=== PATIENT | male | born 1995 | race Caucasian/White ===

== ENCOUNTER 2020-10-12 11:32 | Emergency (ER) | payer OTHER ==
[2020-10-12 11:53] VITALS: BP 136/89
[2020-10-12] MEDS ORDERED: DIPH/PERTUSS(ACELL)/TETANUS VAC/PF 0.5 ML SYR (>=10YO) IM ONE (11:55)
--- NOTE | 2020-10-12 11:57 | ER Document Report ---
ED Medical Screen (RME) - General Chief Complaint: Laceration Stated Complaint: LACERATION/RIGHT HAND,PALM Time Seen by Provider: 10/12/20 11:53 Mode of Arrival: Ambulatory Information source: Patient Notes: 24-year-old male presented to ED for laceration to his left hand. He states he was driving rebar into the ground when he sliced his left hand across the thumb open. He states he does not have any idea when his last tetanus was. He states only medical or surgical history is a fractured toe. He is alert oriented respirations regular unlabored. He has no active bleeding at this time. We will get x-rays and order the tetanus immunization at this time. I have greeted and performed a rapid initial assessment of this patient. A comprehensive ED assessment and evaluation of the patient, analysis of test results and completion of medical decision making process will be conducted by an additional ED providers. Physical Exam - Vital signs Vitals: Temp Pulse Resp BP Pulse Ox 98.4 F 86 16 136/89 H 99 10/11/20 23:51 10/11/20 23:51 10/11/20 23:51 10/11/20 23:51 10/11/20 23:51 Course - Vital Signs Vital signs: Temp Pulse Resp BP Pulse Ox 98.4 F 86 16 136/89 H 99 10/11/20 23:51 10/11/20 23:51 10/11/20 23:51 10/11/20 23:51 10/11/20 23:51
--- NOTE | 2020-10-12 12:43 | RADIOLOGY REPORT (SQ) ---
EXAM DESCRIPTION: HAND RIGHT 3 VIEWS IMAGES COMPLETED DATE/TIME: 10/12/2020 12:35 pm REASON FOR STUDY: Laceration with rebar COMPARISON: None. EXAM PARAMETERS: NUMBER OF VIEWS: Three views. TECHNIQUE: AP, lateral and oblique radiographic images acquired of the right hand. LIMITATIONS: None. FINDINGS: MINERALIZATION: Normal. BONES: No acute fracture or dislocation. JOINTS: The normal carpal alignment is preserved. SOFT TISSUES: No soft tissue swelling or radiopaque foreign body. OTHER: No other findings. IMPRESSION: No acute osseous abnormality of the right hand. TECHNICAL DOCUMENTATION: JOB ID: [id number] [employer]- All Rights Reserved Reading location - IP/workstation name: [email or web address]
[2020-10-12] MEDS ORDERED: LIDOCAINE 2% INJ (20 MG/ML) 20 ML MDV INJ ONE (14:59)
--- NOTE | 2020-10-12 15:06 | ER Document Report ---
ED General - General Chief Complaint: Laceration Stated Complaint: LACERATION/RIGHT HAND,PALM Time Seen by Provider: 10/12/20 11:53 Primary Care Provider: RAYMUNDO ROE DO [ACTIVE STAFF] - Follow up as needed Mode of Arrival: Ambulatory Information source: Patient Notes: This 24-year-old man presents to the emergency department with a history of injury to his right hand today while at work. States that he was driving rebar into the ground when his hand slipped and he sustained a laceration across the thenar portion of the palm. His tetanus is out of date, he has no known allergies to medication. There is a grossly contaminated wound with oil and dirt. He is able to move his thumb flex and extend. Past Medical History - General Information source: Patient - Social History Smoking Status: Current Some Day Smoker Family History: Reviewed & Not Pertinent Review of Systems - Review of Systems Notes: Constitutional: Negative for fever. HENT: Negative for sore throat. Eyes: Negative for visual changes. Cardiovascular: Negative for chest pain. Respiratory: Negative for shortness of breath. Gastrointestinal: Negative for abdominal pain, vomiting or diarrhea. Genitourinary: Negative for dysuria. Musculoskeletal: See HPI Skin: Negative for rash. Neurological: Negative for headaches, weakness or numbness. 10 point ROS negative except as marked above and in HPI. Physical Exam - Vital signs Vitals: Temp Pulse Resp BP Pulse Ox 98.4 F 86 16 136/89 H 99 10/11/20 23:51 10/11/20 23:51 10/11/20 23:51 10/11/20 23:51 10/11/20 23:51 - Notes Notes: PHYSICAL EXAMINATION: Physical Exam: General: Well-nourished well-developed in no acute distress HEENT: NC/AT, pupils equal round and reactive to light, MM moist,nares clear, oropharynx clear, airway patent Neck: supple, no adenopathy, no masses. Good range of motion Lungs: clear, no wheezing, no rales no rhonchi CVS: Regular rate and rhythm no murmur gallop or rub Abdomen: Soft, active, nontender, no masses, no hepatosplenomegaly Ext: No edema, clubbing or cyanosis. Neuro: Alert and responsive, moving all 4 extremities on command, cranial nerves intact, no focal findings Skin: approximately, 4 cm deep laceration across the thenar portion of the thumb, muscle exposed. Right hand, able to flex the tip and extend the tip of the thumb. PSYCH: Normal mood, normal affect. Course - Re-evaluation Re-evalutation: 10/13/20 11:43 This is a complicated hand laceration with laceration to the dominant hand across the lower thenar muscle of the thumb. Patient denies numbness or loss of function in the thumb and he is able to flex and extend the thumb tip and finger the apposition of the thumb to the hand is limited likely from pain. Neurologically no loss of sensation. Copious irrigation of the wound cleaning out the hand which was dirty with mold and dirt as well as the edges of the wound. Wound was irrigated with normal saline. Closure of the wound was a layered closure with muscle and deep subcutaneous tissues being closed with a 4- 0 Vicryl suture the external wound was closed using 4-0 Prolene. Patient tolerated the procedure well and good approximation was obtained. Sterile dres sing and thumb spica splint and a right arm sling. I explained to the patient that he should keep the injured hand elevated to prevent increased swelling also given Keflex 500 mg 4 times a day,(the wound was contaminated with dirt and oily materials. ) He was also given a prescription for ibuprofen 800 mg 3 times a day as needed for pain. 6 tablets of Ransom were dispensed from the hospital emergency department. I spoken with the orthopedist food and beverage controller, Dr. Raymundo Roe, he will see the patient for follow-up in the office. The patient was given the telephone number and told to call tomorrow to schedule a follow-up appointment. - Vital Signs Vital signs: Temp Pulse Resp BP Pulse Ox 98.4 F 86 16 136/89 H 99 10/11/20 23:51 10/11/20 23:51 10/11/20 23:51 10/11/20 23:51 10/11/20 23:51 - Laboratory Results Critical Laboratory Results Reviewed: No Critical Results - Radiology Results Radiology Results Interpreted: 10/13/20 12:23 Right hand x-ray: No bony injury seen, no foreign body. Critical Radiology Results Reviewed: No Critical Results Procedures - Immobilization Right Hand Time completed: 17:30 Pre-Proc Neuro Vasc Exam: Normal Immobilizer type: Thumb spica Performed by: Provider assisted, Other - The emergency department tech Post-Proc Neuro Vasc Exam: Normal Alignment checked and good: Yes - Laceration/Wound Repair Right Hand Time completed: 16:46 - Deep complicated Wound length (cm): 4 - An irregular laceration small areas of loss of the epidermis Wound's Depth, Shape: Other - Deep laceration across the thenar muscle of the right hand., Arterial bleeding Laceration pre-procedure: Sterile drapes applied, Shur-Clens applied Anesthetic type: 2% Lidocaine Volume Anesthetic (mLs): 10 Wound explored: No foreign body removed - The hand is dirty with oil and dirt Irrigated w/ Saline (mLs): 20 Wound Repaired With: Sutures Suture Size/Type: 4:0, Prolene Number of Sutures: 15 - 10 surface sutures to close the wound and 5 sutures. Layer Closure?: Yes Deep Layer Suture Size/Type: 4:0 - Total of 5 sutures placed in the deep muscle with hemostasis achieved., Other - Vicryl Number Deep Layer Sutures: 1 Post-procedure wound care: Sterile dressing applied, Splint applied, Sling applied Post-procedure NV exam normal: Yes Complications: No Discharge - Discharge Clinical Impression: Laceration of right hand Qualifiers: Encounter type: initial encounter Foreign body presence: unspecified Qualified Code(s): S61.411A - Laceration without foreign body of right hand, initial encounter Condition: Good Disposition: HOME, SELF-CARE Instructions: Laceration Care ([facility]), Tetanus Immunization Given ([facility]) Additional Instructions: You were seen in the emergency department today with a laceration to your right hand. Sutures were placed in both the deep tissues and the surface tissues. Please take the antibiotics as prescribed, you may use the pain medications as directed. Please drink plenty of fluids while taking these medications. Follow-up with the orthopedist, Dr. Roe, call the office tommorrow(10/13/2020) to schedule the appointment for follow-up. Please wear the splint, use a sling to prevent increased swelling. Suture removal in 10 to 14 days. HOME CARE INSTRUCTIONS & INFORMATION: Thank you for choosing us for your medical needs. We hope you're satisfied with the care you received. After you leave, you must properly care for your problem and, at the same time, observe its progress. Any condition can change. Some illnesses can change rapidly over hours or days. If your condition worsens, return to the Emergency Department or see your physician promptly. ABOUT YOUR X-RAYS AND EKG'S: If you had an EKG or X-rays taken, they have been read by the Emergency Physician. The X-rays and EKG's will also be read by a Radiologist or Crisis Counselor within 24 hours. If discrepancies are noted, you will be notified by telephone. Please be certain the ED has a correct telephone number & address where you can be reached. Also, realize that some fractures or abnormalities do not show up on initial X-rays. If your symptoms continue, see your physician. ABOUT YOUR LABORATORY TEST: If you had laboratory tests, the results have been reviewed by the Emergency Physician. Some test results (for example cultures) may not be available for several days. You will be contacted if any test result shows you need additional treatment. Please be certain the ED has a correct telephone number and address where you can be reached. ABOUT YOUR MEDICATIONS: You will receive instructions on how to take your medicine on the prescription label you receive. Additional information may be provided by the Pharmacy. If you have questions afterwards, call the ED for clarification or further instructions. Some prescribed medications may cause drowsiness. Do not perform tasks such as driving a car or operating machinery without consulting your Pharmacist. If you feel you need a refill of pain medication, your condition will need re-evaluation. Please do not call for a refill of any medication. ABOUT YOUR SIGNATURE: Signature of this document acknowledges to followin. Understanding that you received emergency treatment and that you may be released before al medical problems are known or treated. Please be certain the ED has a correct phone number & address where you can be reached. 2. Acknowledgement that you will arrange for follow-up care as recommended. 3. Authorization for the Emergency Physician to provide information to your follow-up Physician in order to maximize your care. AT ANY TIME, IF YOUR SYMPTOMS CHANGE SIGNIFICANTLY OR WORSEN OR YOU DEVELOP NEW SYMPTOMS, RETURN TO THE EMERGENCY DEPARTMENT IMMEDIATELY FOR RE-EVALUATION. OUR GOAL IS TO PROVIDE EXCELLENT MEDICAL CARE! WE HOPE THAT WE HAVE MET YOUR EXPECTATIONS DURING YOUR EMERGENCY DEPARTMENT VISIT AND THAT YOU FEEL YOU HAVE RECEIVED EXCELLENT CARE! Prescriptions: Cephalexin Monohydrate [Keflex 500 mg Capsule] 500 mg PO Q6 10 Days #40 capsule Ibuprofen [Motrin 800 mg Tablet] 800 mg PO Q8H PRN #30 tab PRN Reason: For Pain Referrals: RAYMUNDO ROE DO [ACTIVE STAFF] - Follow up as needed
[2020-10-12] MEDS ORDERED: LIDOCAINE 1% INJ (10 MG/ML) 10 ML MDV ONE (16:26)
[2020-10-12] MEDS ORDERED: HYDROCODONE/ACETAMINOPHEN 5-325 MG (6 TAB/ER DISP) PO PRN (16:56)
== END 2020-10-12 17:41 | disposition home or self-care (01) ==
LOC: ER 11:32
DX: S61.411A Laceration without foreign body of right hand, initial encounter (principal); W45.8XXA Other foreign body or object entering through skin, initial encounter; Y93.H3 Activity, building and construction; Y99.0 Civilian activity done for income or pay; F17.200 Nicotine dependence, unspecified, uncomplicated; Z23 Encounter for immunization
CPT/HCPCS: 99283; 90471; 73130; 90715; 12042; J3490